=== PATIENT | female | born 1965 | race Caucasian/White ===

== ENCOUNTER 2017-02-13 00:45 | Emergency (ER) | payer BC ==
[~2017-02-13] VITALS: Ht 157.5 cm; Wt 58.5 kg
[2017-02-13 01:06] VITALS: BP 111/79
--- NOTE | 2017-02-13 01:48 | NUR ---
PT TAKEN TO BED 8
--- NOTE | 2017-02-13 01:55 | NUR ---
51 Y/O F W/C/O HEADACHES X 3 WKS. DENIES ANY N/V OR VISUAL PROBLEMS. PT STATES TO FEEL PALPITATIONS SOME TIMES AND STATES TO BE UNDER A LOT STRESS AT HOME. VSS. NO S/S OF DISTRESS NOTED. MED HYPOTHYROIDISM FOR WHICH TAKES LEVOTHYROXINE.
--- NOTE | 2017-02-13 02:14 | NUR ---
Dr. Dean evaluating patient at bedside.
[2017-02-13] MEDS ORDERED: fentaNYL 0.05 MG/ML VIAL IM ONE (02:20)
[2017-02-13] MEDS ORDERED: ONDANSETRON 4 MG ODT PO ONE (02:20)
[2017-02-13 03:35] VITALS: BP 123/90
--- NOTE | 2017-02-13 03:35 | NUR ---
Patient discharged with v/s stable. Written and verbal after care instructions given and explained. Patient alert, oriented and verbalized understanding of instructions. Ambulatory with steady gait. All questions addressed prior to discharge. ID band removed. Patient advised to follow up with PMD SOON POSSIBLE OR RETURN TO ER IF CONDITION WORSENS. Rx of TRAMADOL given. Patient educated on indication of medication including possible reaction and side effects. Opportunity to ask questions provided and answered.COPY OF LAB RESULTS PROVIDED TO PT.
== END 2017-02-13 03:35 | disposition home or self-care (01) ==
LOC: MED 00:45
DX: E05.90 Thyrotoxicosis, unspecified without thyrotoxic crisis or storm (principal); R03.0 Elevated blood-pressure reading, without diagnosis of hypertension
CPT/HCPCS: 36415; 80053; 84443; 85025; 85610; 85730; 96372; 99284; J3010; S0119

== ENCOUNTER 2021-09-03 17:36 | Emergency (ER) | payer BC, OTHER ==
[~2021-09-03] VITALS: Ht 154.9 cm; Wt 65.9 kg
[2021-09-03 18:09] VITALS: BP 169/78
--- NOTE | 2021-09-03 19:45 | NUR ---
PT SEEN AND EVALUATED BY ROLAN PATRICK. NO NURSING CARE PROVIDED FOR PT.
[2021-09-03 20:13] VITALS: BP 169/78
--- NOTE | 2021-09-03 20:13 | NUR ---
Patient discharged with v/s stable. Written and verbal after care instructions given and explained. Patient verbalized understanding. Ambulatory with steady gait. ARMBAND REMOVED. All questions addressed prior to discharge. Advised to follow up with PMD.
== END 2021-09-03 20:13 | disposition home or self-care (01) ==
LOC: MED 17:36
DX: S06.0X0A Concussion without loss of consciousness, initial encounter (principal); S00.03XA Contusion of scalp, initial encounter; E03.9 Hypothyroidism, unspecified; W21.09XA Struck by other hit or thrown ball, initial encounter; Y93.B9 Activity, other involving muscle strengthening exercises; Y92.89 Other specified places as the place of occurrence of the external cause; Y99.8 Other external cause status
CPT/HCPCS: 70450; 99284